=== PATIENT | male | born 1990 | race Caucasian/White ===

== ENCOUNTER 2020-12-03 16:14 | Emergency (ER) | payer SELFPAY ==
[2020-12-03 16:22] VITALS: BP 137/80
--- NOTE | 2020-12-03 16:54 | Emergency Department Report ---
ED General Adult HPI - General Chief complaint: Chest Pain Stated complaint: CP Time Seen by Provider: 12/03/20 16:38 Source: patient Mode of arrival: Ambulatory Limitations: No Limitations - History of Present Illness Initial comments: Patient is 30 years old male with no significant past medical history. Patient presented to the ER complaining of chest pain. Patient stated that pain has been going on for 2 weeks. Patient describes his pain as sharp and diffuse with no specific radiation. He stated that pain does not have association with exert ion or rest. He denied any fever or chills. No shortness of breath. Patient also denied any recent injuries. - Related Data Previous Rx's Medication Instructions Recorded Last Taken Type Naproxen [Naprosyn] 500 mg PO BID #14 tablet 12/03/20 Unknown Rx Allergies Allergy/AdvReac Type Severity Reaction Status Date / Time No Known Allergies Allergy Unverified 12/03/20 16:15 ED Review of Systems ROS: Stated complaint: CP Other details as noted in HPI Comment: All other systems reviewed and negative Constitutional: denies: chills, fever Respiratory: denies: cough, shortness of breath, SOB with exertion Cardiovascular: chest pain. denies: palpitations, dyspnea on exertion Gastrointestinal: denies: abdominal pain, nausea Musculoskeletal: denies: back pain Neurological: denies: headache, weakness, numbness, paresthesias, confusion ED Past Medical Hx - Past Medical History Previous Medical History?: No - Surgical History Past Surgical History?: No - Medications Home Medications: Home Medications Medication Instructions Recorded Confirmed Last Taken Type Naproxen [Naprosyn] 500 mg PO BID #14 tablet 12/03/20 Unknown Rx ED Physical Exam - General Limitations: No Limitations General appearance: alert, in no apparent distress - Head Head exam: Present: atraumatic, normocephalic, normal inspection - Eye Eye exam: Present: normal appearance - ENT ENT exam: Present: normal exam, normal orophraynx, mucous membranes moist - Neck Neck exam: Present: normal inspection, full ROM. Absent: tenderness, meningismus - Respiratory Respiratory exam: Present: normal lung sounds bilaterally, chest wall tenderness - Cardiovascular Cardiovascular Exam: Present: regular rate, normal rhythm, normal heart sounds - GI/Abdominal GI/Abdominal exam: Present: soft, normal bowel sounds. Absent: distended, tenderness, guarding, rebound, rigid, organomegaly, mass, bruit, pulsatile mass, hernia - Extremities Exam Extremities exam: Present: normal inspection, full ROM, normal capillary refill. Absent: pedal edema, calf tenderness - Back Exam Back exam: Present: normal inspection, full ROM. Absent: CVA tenderness (R), CVA tenderness (L) - Neurological Exam Neurological exam: Present: alert, oriented X3, CN II-XII intact - Psychiatric Psychiatric exam: Present: normal mood - Skin Skin exam: Present: warm, intact, normal color ED Course Vital Signs 12/03/20 16:20 Temperature 98.4 F Pulse Rate 70 Respiratory 24 Rate Blood Pressure 137/80 O2 Sat by Pulse 98 Oximetry ED Medical Decision Making - EKG Data -: EKG Interpreted by Me EKG shows normal: sinus rhythm Rate: normal - EKG Data Interpretation: no acute changes - Radiology Data Radiology results: report reviewed - Medical Decision Making Patient is 30 years old male with no significant past medical history. Patient presented to the ER complaining of chest pain. Patient stated that pain has been going on for 2 weeks. Patient describes his pain as sharp and diffuse with no specific radiation. He stated that pain does not have association with exertion or rest. He denied any fever or chills. No shortness of breath. Shanae ent also denied any recent injuries. EKG is unremarkable. Chest x-ray showed no evidence of pneumothorax or infiltrate indicating pneumonia. Patient chest pain is reproducible. Patient stated that he saw his primary care physician he ordered labs on him and he was not told that he has anything abnormal. Patient symptom is most likely going with costochondritis versus pleurisy however patient strongly advised to follow- up with his primary care physician for outpatient cardiac work-up and to return to the ER if he develop any new symptoms. Critical care attestation.: If time is entered above; I have spent that time in minutes in the direct care of this critically ill patient, excluding procedure time. ED Disposition Clinical Impression: Acute chest pain, Acute costochondritis, Pleurisy Disposition: HOME / SELF CARE / HOMELESS Is pt being admited?: No Condition: Stable Instructions: Costochondritis, [id number], Nonspecific Chest Pain, Adult, Chest Pain (ED), Pleurisy, [id number] Prescriptions: Naproxen [Naprosyn] 500 mg PO BID #14 tablet Referrals: PRIMARY CARE, [Referring] - 3-5 Days
--- NOTE | 2020-12-03 17:18 | XRay Report ---
CHEST 2 VIEWS INDICATION / CLINICAL INFORMATION: Chest pain. Epigastric pain. Arm numbness. COMPARISON: None available. FINDINGS: SUPPORT DEVICES: None. HEART / MEDIASTINUM: The heart size and pulmonary vasculature are normal. The aorta is normal in ramo soren. LUNGS / PLEURA: No significant pulmonary or pleural abnormality. No pneumothorax. ADDITIONAL FINDINGS: No significant additional findings. IMPRESSION: No acute findings. Signer Name: Russell Acevedo MD Signed: 12/03/2020 5:14 PM Workstation Name: [id number]
--- NOTE | 2020-12-05 11:45 | Electrocardiograph Report ---
[facility] Test Date: 2020-12-03 Test Time: 16:28:15 Pat Name: DYANA VERA Department: Room: Gender: M [employer]: GETACHEW : 1990 Requested By: MAXWELL FREITAS Order Number: [id number] Reading MD: Luis M Walls Measurements Intervals [place] Rate: 76 P: 68 [place]: 179 QRS: 220 QRSD: 91 T: 37 QT: 375 QTc: 422 Interpretive Statements Sinus rhythm Right axis deviation ST elev, probable normal early repol pattern No previous ECG available for comparison Electronically Signed On 12-05-2020 11:45:20 EDT by Luis M Walls
== END 2020-12-03 17:43 | disposition home or self-care (01) ==
LOC: ED 16:14
DX: M94.0 Chondrocostal junction syndrome [Tietze] (principal)
CPT/HCPCS: 71046; 93005; 99283